=== PATIENT | female | born 1990 | race Caucasian/White ===

== ENCOUNTER 2017-10-12 18:15 | Emergency (ER) | payer SELFPAY ==
[2017-10-12] MEDS ORDERED: ASPIRIN 81 MG CHEW TAB PO ONE (18:35)
--- NOTE | 2017-10-12 18:35 | ED Physician Documentation ---
Chest Pain - HISTORIAN Historian: patient - HPI Stated Complaint: chest tightness Chief Complaint: Chest Pain Onset: other (2 weeks ) Timing: better Duration: waxing, waning Last known Well Date: 09/13/17 Last Known Well Time: 08:00 Last known Well Code/Unknown Code: Unknown Context: emotional upset, activity, exertion Severity: mild Quality: tightness Chest Pain Radiation: no radiation Chest Pain Signs/Symptoms: dizziness, dyspnea, tachycardia. denies: nausea, vomiting, diaphoresis, cool extremities, tachypnea, hypotension, palpitations, weakness Worsened By: exertion, movement Relieved By: other (today she did some self talk and relaxation and this helped) Further Comments: yes (She states she has had anxiety for years she is in the process of getting back in with her therapist. She states that she has had some medical issues she has been dealing with for the last few weeks and the chest ti ghtness started with that discussion and work up . She states that today she was walking to her sisters and noted increased shortness of air and chest heaviness and she did then sit and do some anxiety self talk and she did feel improvement but for as long as she has felt this has been going on she wanted to get checked out. No radiation. No nausea or diaphoresis) - ROS CONST: none MS/LYMPH: none GI/: none EYES/ENT: none SKIN/ENDO: none NEURO/PSYCH: none - PAST HX [place] risk factors: other (anxiety /PTSD ) DVT/PE Risk Factors: none TAD/AAA risk factors: none Neuro deficit: none GI disease: none Lung disease: none Surgeries/Procedures: other (c section ) Immunizations: UTD Allergies/Adverse Reactions: Allergies Allergy/AdvReac Type Severity Reaction Status Date / Time tramadol Allergy Intermediate Hives Verified 10/12/17 18:36 naproxen Allergy Verified 10/12/17 18:36 Home Medications: Ambulatory Orders Medication Instructions Recorded NK 10/12/17 - SOCIAL HX Smoking History: cigarettes Alcohol Use: none Drug Use: none - FAMILY HX Family HX: none - VITAL SIGNS Vital Signs: Vital Signs Temp Pulse Resp BP Pulse Ox 132/75 04/10/14 14:41 - REVIEWED ASSESSMENTS Nursing Assessment Reviewed: Yes Vitals Reviewed: Yes Progress - Progress Progress: 1930: up walking in room asking time frame on discharge. No chest tightness at this time DG 1950: results discussed. Denies any current chest pain or tightness. No shortness of breath DG ED Results Lab/Radiology - Radiology Radiology Impressions: PA AND LATERAL CHEST HISTORY: Chest pain COMPARISON: None PA and Lateral Chest dated October 12, 2017 demonstrates a normal cardiomediastinal silhouette. Pulmonary vascularity is normal. Lungs are clear. IMPRESSION: NO ACTIVE DISEASE. Electronically signed on Oct 12, 2017 7:14:15 PM CDT by: Kayla Moffett Chest Pain Physical Exam - EXAM General Appearance: no acute distress, alert EENT: eye inspection normal, ENT inspection normal, pharynx normal, no signs of dehydration, DELANO Neck: nml inspection Respiratory: no resp. distress, chest non-tender, wheezes (exp on left upper lung ) CVS: reg. rate & rhythm, no murmur, pulses equal Abdomen: soft, normal bowel sounds, no distension, non-tender Skin: warm/dry, normal color Extremities: non-tender, normal range of motion, no evidence of injury, no edema Neuro: oriented X3, CN's nml as tested, motor nml, sensation nml, mood/affect nml, cognition normal Discharge Clincal Impression: Anxiety Referrals: Primary Doctor,No [Primary Care Provider] - 2 Days Additional Instructions: 1. Hydroxizine 25 mg Take 1 by mouth every 12 hours as needed for anxiety 2. Follow up with PCP for additional referrals 3. Keep appt with Psychiatrist 4. Return to ER for any concerns 5. STOP smoking Condition: Stable Disposition: 01 HOME, SELF-CARE Decision to Admit: NO Date of Decison to Admit: 10/12/17 Decision Time: 20:00
[2017-10-12 19:06] LABS: BASOPHILS % 0.6 (0.0-1.5); EOSINOPHILS % 2.1 % (0.0-6.8); MEAN CORPUSCULAR HEMOGLOBIN 26.7 pg (28.0-34.0); MEAN CORPUSCULAR VOLUME 83.6 fl (80.0-100.0); MONOCYTES % 3.2 % (0.0-11.0); NEUTROPHILS # 7.3 # k/uL (1.4-7.7)
[2017-10-12 19:16] LABS: eGFR (African) > 60; eGFR (Non-African) > 60
[2017-10-12 20:38] VITALS: BP 133/94
--- NOTE | 2017-10-13 06:38 | Diagnostic Imaging Report ---
BALTAZAR HAGEN [facility] [address] [facility] [address] [place], [place]. [address] Report Submission Date: Oct 12, 2017 7:14:15 PM CDT Patient Study Name: LAZARO WALKER Date: Oct 12, 2017 6:56:19 PM CDT Modality Type: DX Gender: F Description: CHEST : 89 Institution: [facility] Physician: BALTAZAR HAGEN PA AND LATERAL CHEST HISTORY: Chest pain COMPARISON: None PA and Lateral Chest dated October 12, 2017 demonstrates a normal cardiomediastinal silhouette. Pulmonary vascularity is normal. Lungs are clear. IMPRESSION: NO ACTIVE DISEASE. Electronically signed on Oct 12, 2017 7:14:15 PM CDT by: Kayla ARROYO
[2017-10-13 07:06] LABS: APPEARANCE,URINE CLEAR (CLEAR); COLOR,URINE AMBER (YELLOW); OCCULT BLOOD,URINE NEGATIVE (NEGATIVE); PH URINE 5.5 (5.0 - 8.0); URINE HCG NEGATIVE (NEGATIVE); UROBILINOGEN URINE 0.2 Eu (0.2-1.0)
== END 2017-10-12 20:26 | disposition home or self-care (01) ==
LOC: ED 18:15
DX: R07.9 Chest pain, unspecified (principal); F41.9 Anxiety disorder, unspecified
CPT/HCPCS: 71046; 80053; 81002; 81025; 82550; 84484; 85025; 85379; 99284; S1016

== ENCOUNTER 2018-02-17 01:44 | Emergency (ER) | payer OTHER ==
--- NOTE | 2018-02-17 02:02 | ED Physician Documentation ---
Headache - HISTORIAN Historian: patient - HPI Stated Complaint: fell and hit her head around 6pm at [facility]. Chief Complaint: Headache Additional Information: Patient presents to ED with a headache since 6:00 pm after hitting her head. Patient states she in the [facility] bathroom when she slipped on water, fell and hit her forehead on the towel dispenser. She did not lose consciousness. She is not on blood thinner. She reports her headache in the occipital region, pressure like, radiating to her forehead. She admits to some nausea. Onset: hours (8) Timing: still present Exposure To: none Severity: moderate Quality: tightness Associated Symptoms: denies: fever Preceding Symptoms: denies: visual disturbance Exacerbated By: movement - ROS NEURO/PSYCH: denies: confusion EYES/ENT: denies: difficulty swallowing CVS/RESP: denies: chest pain, shortness of breath GI/: denies: abdominal pain MS/SKIN/LYMPH: denies: muscle aches all systems neg except as marked: No - PAST HX Medical History: no pertinent history Surgical History: other (tubal ligation) Allergies/Adverse Reactions: Allergies Allergy/AdvReac Type Severity Reaction Status Date / Time tramadol Allergy Intermediate Hives Verified 02/17/18 01:56 naproxen Allergy Verified 02/17/18 01:56 Home Medications: Ambulatory Orders Medication Instructions Recorded Hydroxyzine Pamoate 1 tab PO DAILY PRN MDD 2 tabs 02/17/18 Sertraline HCl [Zoloft] 1 tab PO DAILY 02/17/18 - SOCIAL HX Smoking History: cigarettes, greater than 1 pack/day Alcohol Use: occasionally - Family HX Family History: none - VITAL SIGNS Vital Signs: Vital Signs Temp Pulse Resp BP Pulse Ox 98.2 F 98 H 16 127/91 98 02/17/18 01:50 02/17/18 01:50 02/17/18 01:50 02/17/18 02:20 02/17/18 01:50 - REVIEWED ASSESSMENTS Nursing Assessment Reviewed: Yes Vitals Reviewed: Yes Progress - Progress Progress: 0220 Patient refused Tylenol ED Results Lab/Radiology - Radiology Radiology Impressions: CT HEAD WO CONTRAST History: Headache for 6 hr. Technique: Standard noncontrast CT was performed with contiguous axial images acquired from skull base to vertex. Findings: There is no acute extra-axial fluid collection. Ventricles are of normal size, shape, and morphology. No mass effect or midline shift is present. No evidence of acute hemorrhage. The otero-white matter differentiation is normal. The v isualized portions of the orbits, and mastoids are normal. No fractures are identified. Mild mucosal thickening is present in the maxillary sinus with small fluid in the right maxillary sinus. Impression: 1. No acute intracranial abnormality. 2. Mild sinus disease. Electronically signed on Feb 17, 2018 2:20:[address] [employer]ER[employer] by: Shalom Frey - Orders Orders: ED Orders Category Date Time Status CT BRAIN W/O CONTRAST Stat Exams 02/17/18 Ordered Acetaminophen [Tylenol] Med 02/17/18 02:20 Once 650 mg PO NOW ONE CloNIDine HCL [Catapress] Med 02/17/18 02:16 Stop Req 0.1 mg PO NOW ONE Ondansetron HCl Rapdis [Zofran Odt] Med 02/17/18 02:16 Once 4 mg PO NOW ONE Headache Physical Exam - EXAM General Appearance: no acute distress, alert, other (etoh ) Neck: supple Respiratory: chest non-tender, breath sounds normal CVS: reg. rate & rhythm, heart sounds nml Abdomen: non-tender, nml bowel sounds Skin: color nml, no rash Extremitites: non-tender, no edema - NEURO/PSYCH Higher Functions: alert, oriented x3, nml speech Cranial: nml as tested, no evidence of acute CVA Cerebellar: nml as tested Sensorimotor: motor nml, sensation nml. denies: pronator drift Discharge Clincal Impression: Headache Qualifiers: Headache type: post-traumatic Headache chronicity pattern: acute headache Intr actability: not intractable Qualified Code(s): G44.319 - Acute post-traumatic headache, not intractable Referrals: Justin Elliott [Primary Care Provider] - 2 Days Additional Instructions: 1. tylenol and/or ibuprofen as needed for pain 2. Drink plenty of fluids to maintain proper hydration. Avoid alcohol and caffeine 3. Apply ice to affected area as needed for comfort 4. Follow up with PCP within 3 days 5. Return to the ED for new or worsening symptoms. Condition: Stable Disposition: 01 HOME, SELF-CARE Decision to Admit: NO Date of Decison to Admit: 02/17/18 Decision Time: 02:33
[2018-02-17] MEDS ORDERED: ONDANSETRON HCL 4 MG TAB.RAPDIS PO ONE (02:16)
[2018-02-17] MEDS ORDERED: CloNIDine HCL 0.1 MG TABLET PO ONE (02:16)
[2018-02-17] MEDS ORDERED: ACETAMINOPHEN 325 MG TABLET PO ONE (02:20)
--- NOTE | 2018-02-17 02:23 | Diagnostic Imaging Report ---
DEBORAH JOVEL [facility] [address] [facility] [address] [place], [place]. [address] Report Submission Date: Feb 17, 2018 2:20:16 AM [employer] SAL[employer] REPRESENTATIVE Patient Study Name: LAZARO WALKER Date: Feb 17, 2018 2:07:22 AM [employer]EL[employer] SAL[employer] REPRESENTATIVE Modality Type: CT\SR Gender: F Description: CT BRAIN W/O CONTRAST : 89 Institution: [facility] Physician: DEBORAH JOVEL CT HEAD WO CONTRAST History: Headache for 6 hr. Technique: Standard noncontrast CT was performed with contiguous axial images acquired from skull base to vertex. Findings: There is no acute extra-axial fluid collection. Ventricles are of normal size, shape, and morphology. No mass effect or midline shift is present. No evidence of acute hemorrhage. The otero-white matter differentiation is normal. The visualized portions of the orbits, and mastoids are normal. No fractures are identified. Mild mucosal thickening is present in the maxillary sinus with small fluid in the right maxillary sinus. Impression: 1. No acute intracranial abnormality. 2. Mild sinus disease. Electronically signed on Feb 17, 2018 2:20:16 AM [employer]EL[employer] SALES REPRESENTATIVE by: Shalom ARROYO
[2018-02-17 02:52] VITALS: BP 144/85
[2018-02-18] MEDS ORDERED: KETOROLAC TROMETHAMINE 60 MG/2 ML VIAL ONE (17:41)
== END 2018-02-17 02:37 | disposition home or self-care (01) ==
LOC: ED 01:44
DX: G44.319 Acute post-traumatic headache, not intractable (principal); W01.198A Fall on same level from slipping, tripping and stumbling with subsequent striking against other object, initial encounter; Y93.9 Activity, unspecified; Y92.512 Supermarket, store or market as the place of occurrence of the external cause
CPT/HCPCS: 70450; 99282; 99284; A9270